=== PATIENT | female | born 2000 | race Caucasian/White ===

== ENCOUNTER 2022-11-06 20:59 | Emergency (ER) | payer OTHER, SELFPAY ==
--- NOTE | 2022-11-06 | ECG_ITS ---
APPROVED REPORT Exam: Resting ECG HR:70 bpm ECG Measurements Heart Rate 70 AXES WI 147 P 43 QRSd 93 QRS 71 QT 385 T 53 QTc 405 Conclusion SINUS RHYTHM WITH SINUS ARRHYTHMIA NORMAL ECG UNCONFIRMED REPORT Electronically signed by : Jose Baugh MD 11/08/2022 22:08:50
[2022-11-06 21:01] VITALS: BP 123/89; PULSE 70; RESP 18; TEMP 36.8; O2SAT 98; BMI 38.9
[2022-11-06 21:02] VITALS: BP 120/68; PULSE 66; O2SAT 94
--- NOTE | 2022-11-06 21:02 | [facility].EDCP ---
Discharge Plan Disposition Condition: Fair Chief Complaint: Chest Pain Referrals Follow up/Referrals: Provider,Referral, MD [Primary Care Provider] - See instructions Clinical Impressions Clinical Impression: Atypical chest pain, DUB (dysfunctional uterine bleeding) Instructions Patient Instructions: Polycystic Ovary Syndrome, DI for Atypical Chest Pain Discharge ED Provider: Samm Brown Chest Pain HPI General Chief Complaint: Chest Pain Stated Complaint: chest tightness, stint in kidney Time Seen by Provider: 11/06/22 21:10 Mode of Arrival: Ambulatory History of Present Illness MD complaint: chest pain Onset (ago): day(s) (1) Duration: constant Contraindication for Aspirin: Drug treatment not indicated (vaginal bleeding) [facility] Disclaimer: The information contained in this section may have been updated after the patient was seen, as this information can be updated by other users. Social History Smoking Status: Never smoker alcohol intake: current current occupational status: other Travel in the last 8 weeks: None ROS Obtained: Yes Systems reviewed as appropriate & no additional complaints except as documented Cardiovascular Cardiovascular: Reports chest pain Genitourinary Female Genitourinary: Reports abnormal vaginal bleeding, Reports dyspareunia, Reports metrorrhagia and Reports pelvic pain Physical Exam General General appearance: alert and in no apparent distress Head Head exam: atraumatic and normocephalic ENT ENT exam: Present normal exam Chest Chest inspection: Present normal inspection Respiratory Respiratory exam: Present normal lung sounds bilaterally Cardiovascular Cardiovascular exam: Present regular rate Abdominal Exam Abdominal exam: Present soft and normal bowel sounds; Absent tenderness Neurological Exam Neurological exam: Present alert, oriented X3 and normal gait Psychiatric Psychiatric exam: Present normal affect and normal mood Medical Decision Making Clarence Inquiry Pt receiving controlled substance: No Vital Signs: 11/06/22 21:01 11/06/22 21:02 11/06/22 22:00 Temperature 98.3 F Temperature Source Oral Pulse Rate 66 58 L Pulse Rate [Apical] 70 Respiratory Rate 18 11 L Blood Pressure 120/68 109/66 L Blood Pressure [Right Arm] 123/89 Blood Pressure Mean [Right Arm] 100 Blood Pressure Source [Right Arm] Automatic Cuff Blood Pressure Position [Right Arm] Sitting 02 Sat by Pulse Oximetry 98 94 L 95 Oxygen Delivery Method Room Air Room Air Room Air Lab Data Lab results reviewed: Yes I reviewed the patient's lab results. Lab Results 11/06/22 21:01: WBC 10.5, RBC 4.79, Hgb 14.3, Hct 42.8, MCV 89.2, MCH 29.9, MCHC 33.5, RDW 12.7, Plt Count 342, MPV 9.3, Neut % (Auto) 59.3, Lymph % (Auto) 30.4, [place] % (Auto) 6.0, Eos % (Auto) 3.3, Baso % (Auto) 1.0, Neut # (Auto) 6.3, Lymph # (Auto) 3.2, [place] # (Auto) 0.6, Eos # (Auto) 0.4, Baso # (Auto) 0.1 11/06/22 21:01: Sodium 139, Potassium 4.1, Chloride 97 L, Carbon Dioxide 27, Anion Gap 19.1 H, BUN 13, Creatinine 0.70, Estimated Creat Clear 197, Estimated GFR 104, Est GFR ( Amer) 125, Glucose 106 H, Calcium 9.1, Troponin I < 0.01 11/06/22 21:40: Urine HCG, Qual Negative 11/06/22 21:40: Urine Color Red, Urine Appearance Turbid, Urine pH 6.0, Ur Specific [place] >= 1.030, Urine Protein 3+, Urine Glucose (UA) Negative, Urine Ketones Negative, Urine Blood 3+, Urine Nitrate Negative, Urine Bilirubin Negative, Urine Urobilinogen 0.2, Ur Leukocyte Esterase Trace, Urine RBC Tntc, Urine WBC Occasional, Ur Squamous Epith Cells Occasional, Urine Bacteria Trace Result diagrams: 11/06/22 21:01 11/06/22 21:01 Orders (Tests/Meds): ED MEDICATIONS Discontinued Medications Generic Name Dose Route Start Last Admin Trade Name Vetoq PRN Reason Stop Dose Admin Ketorolac Tromethamine 30 mg 11/06/22 22:00 11/06/22 22:06 Ketorolac 30mg/Ml Vial IM 11/06/22 22:01 30 mg ONCE
--- NOTE | 2022-11-06 21:21 | XR_ITS ---
PROCEDURE INFORMATION: Exam: XR Abdomen Exam date and time: 11/06/2022 9:43 PM Age: 22 years old Clinical indication: Device placement; Urinary device; Renal or nephroureteral stent; Additional info: Stent placement TECHNIQUE: Imaging protocol: Radiologic exam of the abdomen. Views: Frontal supine view of the abdomen. 1 View. COMPARISON: CR XR CHEST 2V 11/06/2022 9:42 PM FINDINGS: Tubes, catheters and devices: Double-J left ureteral stent. Gastrointestinal tract: Nonobstructive bowel gas pattern. Bones/joints: Unremarkable. IMPRESSION: Double-J left ureteral stent.
--- NOTE | 2022-11-06 21:22 | XR_ITS ---
PROCEDURE INFORMATION: Exam: XR Chest Exam date and time: 11/06/2022 9:42 PM Age: 22 years old Clinical indication: Pain; Chest pressure; Additional info: Chest pain TECHNIQUE: Imaging protocol: Radiologic exam of the chest. Views: 2 views. COMPARISON: No relevant prior studies available. FINDINGS: Lungs: No focal consolidation. Pleural spaces: No pleural effusion. No pneumothorax. Heart/Mediastinum: Unremarkable cardiomediastinal silhouette. Bones/joints: No acute osseous findings. IMPRESSION: No focal consolidation.
[2022-11-06 21:35] LABS: Basophils # 0.1 K/mm3 (0-0.2); Eosinophils # 0.4 K/mm3 (0.0-0.4); Eosinophils % 3.3 % (0.1-12.0); Hematocrit 42.8 % (37.0-47.0); Hemoglobin 14.3 g/dL (12.2-16.2); Lymphocytes # 3.2 K/mm3 (0.7-4.5); Lymphocytes % 30.4 % (10-50); Mean Corpuscular HGB Conc 33.5 g/dL (31.8-35.4); Mean Corpuscular Hemoglobin 29.9 pg (27.0-31.2); Mean Corpuscular Volume 89.2 fl (81-99); Mean Platelet Volume 9.3 fl (7.4-10.4); Monocytes # 0.6 K/mm3 (0.1-1.0); Neutrophils # 6.3 K/mm3 (1.8-7.8); Neutrophils % 59.3 % (37.0-80.0); Platelet Count 342 K/mm3 (142-424); Red Blood Count 4.79 M/mm3 (4.20-5.40); Red Cell Distribution Width 12.7 % (11.5-17.5); White Blood Count 10.5 K/mm3 (4.8-10.8)
[2022-11-06 21:36] LABS: Chloride 97 mmol/L (98-107); Sodium 139 mmol/L (136-145)
[2022-11-06 21:37] LABS: Potassium 4.1 mmoL/L (3.5-5.1)
[2022-11-06 21:39] LABS: Blood Urea Nitrogen 13 mg/dl (7-17); Creatinine Clearance Estimated 197 mL/min (50-200); Estimated Glomerular Filt Rate 104 ml/min (>60); GFR (African American) 125 ML/MIN (>60)
[2022-11-06 21:40] LABS: Anion Gap 19.1 mEq/L (5-15); Calcium 9.1 mg/dl (8.4-10.2); Carbon Dioxide 27 mmol/L (22.0-30.0); Glucose 106 mg/dl (74-100)
--- NOTE | 2022-11-06 21:43 | PC.NURSE ---
Pt able to provide urine sample
[2022-11-06 21:44] LABS: Microscopic, Urine URINE MICROSCOPIC (MICROSCOPIC)
[2022-11-06 21:48] LABS: Urine Pregnancy, HCG Qual. Negative (Negative)
--- NOTE | 2022-11-06 21:50 | PC.NURSE ---
PT gone to RAD via wheelchair
--- NOTE | 2022-11-06 21:55 | PC.NURSE ---
Pt back from RAD
[2022-11-06 21:59] LABS: Troponin I < 0.01 ng/ml (0.00-0.034)
--- NOTE | 2022-11-06 21:59 | PC.NURSE ---
Pt provided with warm blanket. Pt complaining of abdominal and pelvic pain
[2022-11-06 22:00] VITALS: BP 109/66; PULSE 58; RESP 11; O2SAT 95
[2022-11-06 22:01] LABS: Appearance,Urine TURBID (Clear); Bilirubin,Urine Negative (Negative); Blood, Urine 3+ (Negative); Color,Urine RED (Yellow); Glucose,Urine (UA) Negative (Negative); Ketones,Urine Negative (Negative); Leukocyte Esterase,Urine TRACE (Negative); Nitrate,Urine Negative (Negative); Protein,Urine 3+ (Negative); Specific Gravity, Urine >= 1.030 (1.005-1.030); Urobilinogen,Urine 0.2 EU/dl (0.2)
[2022-11-06 22:04] LABS: Bacteria,Urine Trace /lpf; RBC,Urine TNTC #/hpf (0-3); Squamous Epithelial Cell,Urine Occasional #/hpf (0-5); WBC,Urine Occasional #/hpf (0-3)
[2022-11-06 23:09] VITALS: BP 109/65; PULSE 60; RESP 18; TEMP 36.6; O2SAT 99
== END 2022-11-06 23:11 | disposition home or self-care (01) ==
PROVIDERS: Emergency Provider Emergency Medicine
DX: R07.89 Other chest pain (principal)
CPT/HCPCS: 71046; 74018; 80048; 81001; 81025; 84484; 85025; 93005; 96372; 99285